=== PATIENT | female | born 1990 | race Caucasian/White ===

== ENCOUNTER 2016-05-21 22:52 | Emergency (ER) | payer MEDICAID ==
[~2016-05-21 22:52] MED LIST: ACYCLOVIR PO; MOTRIN800 MG PO; NORCO 5/325 TAB1 TAB PO
[2016-05-21 23:31] LABS: URINE BILIRUBIN NEGATIVE (NEG); URINE BLOOD LARGE (NEG); URINE GLUCOSE (UA) NEGATIVE (NEG); URINE KETONE NEGATIVE (NEG); URINE LEUKOCYTE ESTERASE NEGATIVE (NEG); URINE NITRITE NEGATIVE (NEG); URINE PROTEIN NEGATIVE (NEG); URINE SPECIFIC GRAVITY 1.025 (1.003-1.030)
[2016-05-21 23:32] LABS: URINE APPEARANCE HAZY; URINE COLOR YELLOW
[2016-05-21 23:37] LABS: URINE AMORPHOUS 1+; URINE BACTERIA 1+; URINE RBC RARE /[HPF] (0-5); URINE WBC 0 /[HPF] (0-5)
[2016-05-22 00:27] LABS: BASO % 0.3 % (0-2); EOS % 1.9 % (0-7); EOSINOPHIL ABSOLUTE COUNT 0.2 tho/cmm (0.0-0.7); HCT-HEMATOCRIT 33.5 % (34.0-49.0); HGB-HEMOGLOBIN 11.4 gm/dl (12.0-15.5); IMMATURE GRANULOCYTES ABSOLUTE 0.03 tho/cmm (0-0.03); IMMATURE GRANULOCYTES PERCENT 0.3 % (0-0.3); LYMPH % 23.9 % (20-45); LYMPH ABSOLUTE COUNT 2.4 tho/cmm (0.8-4.5); MCH (MEAN CORPUSCULAR HGB) 28.1 pg (28.0-32.0); MCV (MEAN CELL VOLUME) 82.5 fl (82.0-96.0); MEAN PLATELET VOLUME 10.1 cmc (9.4-12.4); MONO % 7.8 % (0-12); MONOCYTE ABSOLUTE COUNT 0.8 tho/cmm (0.0-1.2); NEUTROPHIL ABSOLUTE COUNT 6.7 tho/cmm (1.6-8.0); NEUTROPHIL-AUTOMATED 6.7 tho/cmm (1.6-8.0); NEUTROPHILS % 65.8 % (40-80); PLATELET COUNT 292 tho/cmm (150-450); RED BLOOD COUNT 4.06 mil/cmm (4.00-5.20); WHITE BLOOD COUNT 10.1 tho/cmm (4.0-10.0)
[2016-05-22 01:13] LABS: BLOOD UREA NITROGEN 12 mg/dl (6-24); CALCIUM 8.8 mg/dl (8.5-10.5); CARBON DIOXIDE-VENOUS 23 mmol/L (22-32); CREATININE 0.68 mg/dl (0.50-1.10); GLUCOSE 100 mg/dL (70-110); eGFR VALUE FOR BLACK >90 mL/Min
[2016-05-22 01:32] LABS: POTASSIUM 3.5 mmol/L (3.5-5.3); SODIUM 139 mmol/L (135-146)
[2016-05-22 01:33] LABS: ANION GAP 12 mmol/L (0-20); CHLORIDE 108 mmol/l (96-110)
== END 2016-05-22 01:43 ==
LOC: EDMED 22:52
PROVIDERS: Emergency Medicine
DX: N83.201 Unspecified ovarian cyst, right side (principal)
CPT/HCPCS: J2405; J7030